=== PATIENT | male | born 1980 | race Two or more races ===

== ENCOUNTER 2021-01-11 07:44 | Emergency (ER) | payer OTHER ==
[~2021-01-11] VITALS: Ht 162.6 cm; Wt 90.7 kg
[2021-01-11] MEDS ORDERED: SODIUM CHLORIDE 0.9% 1,000 ML IV ONE ×2 (08:45)
[2021-01-11] MEDS ORDERED: THIAMINE 100mg/ml INJ (200mg/2ml VIAL) IV ONE (08:45)
[2021-01-11] MEDS ORDERED: chlordiazePOXIDE HCL 5 MG CAP PO ONE (08:45)
[2021-01-11 09:31] LABS: Basophils # (auto) 0 10 ^3/uL (0-0.2); Basophils % (auto) 0.3 % (0.0-2.0); Eosinophils # (auto) 0 10 ^3/uL (0-0.8); Eosinophils % (auto) 0.5 % (0.0-7.0); Hematocrit 44.2 % (41.0-53.0); Lymphocytes # (auto) 3.3 10 ^3/uL (0.4-5.4); Lymphocytes % (auto) 36.4 % (10.0-50.0); Mean Corpuscular Hemoglobin 33.7 pg (28.0-32.0); Mean Corpuscular Volume 93.2 fL (80.0-100.0); Monocytes # (auto) 0.6 10 ^3/uL (0-1.3); Monocytes % (auto) 7.1 % (0.0-12.0); Neutrophils % (auto) 55.7 % (37.0-80.0); Nucleated Red Blood Cells % 0.1 %; Platelet Count (auto) 129 10^3/uL (140-450); Red Blood Cells 4.74 10^6/uL (4.5-5.90); Red Cell Distribution Width 13.8 % (11.8-14.3); White Blood Cell 8.9 10^3/uL (4.4-10.8)
[2021-01-11 09:35] LABS: Urine Bacteria NONE SEEN /hpf (None Seen); Urine Blood Negative /uL (Negative); Urine Specific Gravity 1.012 (1.001-1.035); Urine WBC <1 /hpf (0 - 3)
[2021-01-11 09:48] LABS: Albumin 3.8 g/dL (3.4-5.0); Calcium 7.9 mg/dL (8.5-10.1); Potassium 3.7 mmol/L (3.5-5.1)
[2021-01-11 09:51] LABS: BUN/Creatinine Ratio 9.3; Bilirubin, Total 0.6 mg/dL (0.2-1.0); Total Protein 8.7 g/dL (6.4-8.2)
[2021-01-11] MEDS ORDERED: ONDANSETRON HCL 4 MG/2 ML VIAL IV ONE (12:45)
[2021-01-11 14:00] VITALS: BP 158/99
== END 2021-01-11 15:09 | disposition home or self-care (01) ==
LOC: ER 07:44
DX: F10.239 Alcohol dependence with withdrawal, unspecified (principal); F41.9 Anxiety disorder, unspecified; Z20.822 Contact with and (suspected) exposure to COVID-19; Y90.9 Presence of alcohol in blood, level not specified
CPT/HCPCS: 36415; 80053; 81001; 85025; 85049; 87426; 96361; 96374; 96375; 99285; J2405; J3411; J7030

== ENCOUNTER 2021-02-13 07:52 | Emergency (ER) | payer OTHER ==
[~2021-02-13] VITALS: Ht 162.6 cm; Wt 90.7 kg
[2021-02-13] MEDS ORDERED: SODIUM CHLORIDE 0.9% 1,000 ML IV ONE ×2 (08:30)
[2021-02-13] MEDS ORDERED: THIAMINE 100mg/ml INJ (200mg/2ml VIAL) IV ONE (08:30)
[2021-02-13] MEDS ORDERED: LABETALOL HCL 5 MG/ML 4ML SYRINGE IV ONE (08:30)
[2021-02-13 08:50] LABS: Albumin 4.2 g/dL (3.4-5.0); BUN/Creatinine Ratio 8.4; Calcium 8.5 mg/dL (8.5-10.1); Magnesium 1.2 mg/dL (1.6-2.6)
[2021-02-13 08:53] LABS: Bilirubin, Total 0.7 mg/dL (0.2-1.0); Total Protein 8.9 g/dL (6.4-8.2)
[2021-02-13 08:57] LABS: Basophils # (auto) 0.1 10 ^3/uL (0-0.2); Basophils % (auto) 0.8 % (0.0-2.0); Eosinophils # (auto) 0 10 ^3/uL (0-0.8); Eosinophils % (auto) 0.1 % (0.0-7.0); Hematocrit 45.4 % (41.0-53.0); Lymphocytes % (auto) 28.1 % (10.0-50.0); Mean Corpuscular Hemoglobin 32.2 pg (28.0-32.0); Mean Corpuscular Hgb Conc. 35.3 g/dL (32.0-36.0); Mean Corpuscular Volume 91.3 fL (80.0-100.0); Monocytes # (auto) 0.4 10 ^3/uL (0-1.3); Neutrophils # (auto) 4.6 10 ^3/uL (1.6-8.6); Nucleated Red Blood Cells % 0.1 %; Red Blood Cells 4.97 10^6/uL (4.5-5.90); Red Cell Distribution Width 13.4 % (11.8-14.3); White Blood Cell 7.1 10^3/uL (4.4-10.8)
[2021-02-13 09:04] LABS: Potassium 2.9 mmol/L (3.5-5.1)
[2021-02-13] MEDS ORDERED: POTASSIUM EFFERVESENT TAB 25 MEQ PO ONE (09:15)
[2021-02-13] MEDS ORDERED: chlordiazePOXIDE HCL 25 MG CAP PO ONE (09:45)
[2021-02-13] MEDS ORDERED: ONDANSETRON HCL 4 MG/2 ML VIAL IV ONE (10:00)
[2021-02-13 12:14] VITALS: BP 157/95
== END 2021-02-13 12:33 | disposition home or self-care (01) ==
LOC: ER 07:52
DX: F10.129 Alcohol abuse with intoxication, unspecified (principal); R00.2 Palpitations; R00.0 Tachycardia, unspecified; Y90.0 Blood alcohol level of less than 20 mg/100 ml
CPT/HCPCS: 36415; 71045; 80053; 80320; 83735; 84484; 85025; 93005; 96361; 96374; 96375; 99285; J2405; J3411; J3490; J7030

== ENCOUNTER 2021-03-29 06:58 | Inpatient (IN) | payer OTHER ==
[~2021-03-29] VITALS: Ht 162.6 cm; Wt 90.7 kg
[2021-03-29 07:34] LABS: Basophils # (auto) 0 10 ^3/uL (0-0.2); Basophils % (auto) 0.5 % (0.0-2.0); Eosinophils # (auto) 0 10 ^3/uL (0-0.8); Eosinophils % (auto) 0.7 % (0.0-7.0); Hematocrit 45.8 % (41.0-53.0); Hemoglobin 15.9 g/dL (13.5-17.5); Lymphocytes # (auto) 2.7 10 ^3/uL (0.4-5.4); Lymphocytes % (auto) 46.3 % (10.0-50.0); Mean Corpuscular Hemoglobin 32.7 pg (28.0-32.0); Mean Corpuscular Hgb Conc. 34.8 g/dL (32.0-36.0); Monocytes # (auto) 0.5 10 ^3/uL (0-1.3); Monocytes % (auto) 8.4 % (0.0-12.0); Neutrophils # (auto) 2.5 10 ^3/uL (1.6-8.6); Neutrophils % (auto) 44.1 % (37.0-80.0); Nucleated Red Blood Cells % 0.3 %; Red Blood Cells 4.88 10^6/uL (4.5-5.90); White Blood Cell 5.7 10^3/uL (4.4-10.8)
[2021-03-29 07:55] LABS: Albumin 3.9 g/dL (3.4-5.0); Anion Gap 13 (5-15); Blood Urea Nitrogen 4 mg/dL (7-18); Calcium 9.3 mg/dL (8.5-10.1); Carbon Dioxide 22 mmol/L (21-32); Chloride 100 mmol/L (98-107); Glucose 102 mg/dL (74-106); Sodium 135 mmol/L (136-145)
[2021-03-29 08:02] LABS: Alanine Aminotransferase 55 U/L (16-61); Alkaline Phosphatase 70 U/L (45-117); Aspartate Aminotransferase 53 U/L (15-37); BUN/Creatinine Ratio 5.4; Bilirubin, Total 0.8 mg/dL (0.2-1.0); GFR African American 151 mL/min; GFR Non-African American 125 mL/min; Total Protein 8.7 g/dL (6.4-8.2)
[2021-03-29 08:07] LABS: Potassium 2.9 mmol/L (3.5-5.1)
[2021-03-29] MEDS ORDERED: POTASSIUM CHL 20MEQ/100ML 100 ML IV ONE (08:15)
[2021-03-29] MEDS ORDERED: ENOXAPARIN SOD 60 MG/0.6 ML SYRINGE SC ONE (08:15)
[2021-03-29 08:34] LABS: Urine Bacteria NONE SEEN /hpf (None Seen); Urine Blood Negative /uL (Negative); Urine Mucus FEW (None Seen); Urine Specific Gravity 1.019 (1.001-1.035); Urine WBC 1 /hpf (0 - 3)
[2021-03-29 08:45] LABS: Amphetamine Screen, Urine NEGATIVE (NEGATIVE); Barbiturate Scree,Urine NEGATIVE (NEGATIVE); Benzodiazephine Screen, Urine NEGATIVE (NEGATIVE); Cannabinoid Screen, Urine NEGATIVE (NEGATIVE); Cocaine Screen, Urine NEGATIVE (NEGATIVE); Opiate Scree,Urine NEGATIVE (NEGATIVE); Phencyclidine Screen, Urine NEGATIVE (NEGATIVE)
[2021-03-29] MEDS ORDERED: POTASSIUM EFFERVESENT TAB 25 MEQ PO ONE (09:45)
[2021-03-29] MEDS ORDERED: LORazepam 2MG/ML-1ML VIAL IV ONE (10:00)
[2021-03-29] MEDS ORDERED: chlordiazePOXIDE HCL 25 MG CAP PO ONE (10:00)
[2021-03-29] MEDS ORDERED: FOLIC ACID 1 MG, MULTIPLE VITAMIN 10 ML, MAGNESIUM SULF SDV 50% 8 MEQ, THIAMINE INJ 100... INJ SCH ×5 (10:00)
[2021-03-29] MEDS ORDERED: ONDANSETRON HCL 4 MG/2 ML VIAL IV ONE (10:45)
[2021-03-29] MEDS ORDERED: SODIUM CHLORIDE 0.9% 1,000 ML IV ONE (10:45)
[2021-03-29] MEDS ORDERED: NITROGLYCERIN 0.4 MG SL TAB SL PRN (15:15)
[2021-03-29] MEDS ORDERED: SOD CHL 0.9%/ KCL 20MEQ 1,000 ML IV SCH (15:15)
[2021-03-29] MEDS ORDERED: POTASSIUM CHLORIDE 40 MEQ, LIDOCAINE 1% (LOCAL ANESTH.) 4 ML in SODIUM CHL 0.9% 250 ML IV ONE (15:15)
[2021-03-29] MEDS ORDERED: LORazepam 2MG/ML-1ML VIAL IV PRN (15:15)
[2021-03-29] MEDS ORDERED: chlordiazePOXIDE HCL 25 MG CAP PO PRN (15:15)
[2021-03-29] MEDS ORDERED: PANTOPRAZOLE 40 MG/10 ML VIAL INJ IV ONE (15:15)
[2021-03-29] MEDS ORDERED: MORPHINE SULFATE INJECTION 2 MG/ML SYRG IV PRN (15:15)
[2021-03-29] MEDS ORDERED: POTASSIUM CHL 20 Meq TABLET PO ONE (15:15)
[2021-03-29] MEDS ORDERED: ATORVASTATIN 20 MG TAB PO SCH (22:00)
[2021-03-30] VITALS: BP 137/46
[2021-03-30 00:20] VITALS: BP 137/96
[2021-03-30] MEDS ORDERED: ALBUAER3 IN (02:51)
[2021-03-30] MEDS ORDERED: PNEUMOCOCCAL VACC POLYS 25 MCG/0.5 ML VIAL IM ONE (03:00)
[2021-03-30 05:00] VITALS: BP 145/92
[2021-03-30 06:30] LABS: Potassium 4.1 mmol/L (3.5-5.1)
[2021-03-30 06:56] LABS: Albumin 3.3 g/dL (3.4-5.0); Bilirubin, Total 1.3 mg/dL (0.2-1.0); Calcium 8.6 mg/dL (8.5-10.1); Magnesium 1.9 mg/dL (1.6-2.6); Total Protein 7.3 g/dL (6.4-8.2)
[2021-03-30 10:00] VITALS: BP 137/91
[2021-03-30] MEDS ORDERED: PANTOPRAZOLE 40 MG/10 ML VIAL INJ IV SCH (10:00)
[2021-03-30] MEDS ORDERED: ASPirin 81 mg TAB PO SCH (10:00)
[2021-03-30] MEDS ORDERED: LISINOPRIL 10 MG TAB PO SCH (10:00)
[2021-03-30] MEDS ORDERED: FOLIC ACID 1 MG, MULTIPLE VITAMIN 10 ML, MAGNESIUM SULF SDV 50% 8 MEQ, THIAMINE INJ 100... INJ SCH ×5 (12:00)
[2021-03-30 13:00] VITALS: BP 144/95
[2021-03-30 14:09] VITALS: BP 137/91
== END 2021-03-30 16:30 | disposition home or self-care (01) | DRG 392 ==
LOC: ER 06:58 → TELE 15:15 → TELE-CENTR 23:33
PROVIDERS: ADMIT Internal Medicine; ATTEND Internal Medicine
DX: K21.9 Gastro-esophageal reflux disease without esophagitis (principal); F10.230 Alcohol dependence with withdrawal, uncomplicated; K29.20 Alcoholic gastritis without bleeding; E87.6 Hypokalemia; F41.9 Anxiety disorder, unspecified; Y90.2 Blood alcohol level of 40-59 mg/100 ml; F10.229 Alcohol dependence with intoxication, unspecified; I10 Essential (primary) hypertension; E66.9 Obesity, unspecified; E78.5 Hyperlipidemia, unspecified; Z20.822 Contact with and (suspected) exposure to COVID-19; Z68.34 Body mass index [BMI] 34.0-34.9, adult; Z79.899 Other long term (current) drug therapy; Z91.19 Patient's noncompliance with other medical treatment and regimen
CPT/HCPCS: 36415; 71045; 80053; 80061; 80307; 80320; 81001; 83735; 84443; 84484; 85025; 87426; 93005; 93306; 96365; 96366; 96372; 96375; 99291; C9113; G0378; J2001; J2405

== ENCOUNTER 2021-05-25 19:48 | Emergency (ER) | payer OTHER ==
[~2021-05-25] VITALS: Ht 160 cm; Wt 90.7 kg
[~2021-05-25 19:48] MED LIST: ALBUAER3 IN
[2021-05-25 21:18] LABS: Urine Bacteria NONE SEEN /hpf (None Seen); Urine Blood 1+ /uL (Negative); Urine Hyaline Cast MOD /lpf (0 - 2); Urine Mucus FEW (None Seen); Urine Specific Gravity 1.028 (1.001-1.035); Urine WBC 2 /hpf (0 - 3)
[2021-05-25 21:26] LABS: Basophils # (auto) 0.1 10 ^3/uL (0-0.2); Basophils % (auto) 0.5 % (0.0-2.0); Eosinophils # (auto) 0 10 ^3/uL (0-0.8); Hematocrit 48.1 % (41.0-53.0); Hemoglobin 16.3 g/dL (13.5-17.5); Lymphocytes # (auto) 3.2 10 ^3/uL (0.4-5.4); Lymphocytes % (auto) 26.6 % (10.0-50.0); Mean Corpuscular Hemoglobin 32.2 pg (28.0-32.0); Mean Corpuscular Hgb Conc. 33.9 g/dL (32.0-36.0); Mean Corpuscular Volume 94.8 fL (80.0-100.0); Monocytes # (auto) 0.4 10 ^3/uL (0-1.3); Monocytes % (auto) 3.4 % (0.0-12.0); Neutrophils # (auto) 8.5 10 ^3/uL (1.6-8.6); Neutrophils % (auto) 69.5 % (37.0-80.0); Nucleated Red Blood Cells % 0.2 %; Red Blood Cells 5.08 10^6/uL (4.5-5.90); Red Cell Distribution Width 14.2 % (11.8-14.3); White Blood Cell 12.2 10^3/uL (4.4-10.8)
[2021-05-25 21:30] LABS: Amphetamine Screen, Urine NEGATIVE (NEGATIVE); Barbiturate Scree,Urine NEGATIVE (NEGATIVE); Benzodiazephine Screen, Urine NEGATIVE (NEGATIVE); Cannabinoid Screen, Urine NEGATIVE (NEGATIVE); Cocaine Screen, Urine NEGATIVE (NEGATIVE); Phencyclidine Screen, Urine NEGATIVE (NEGATIVE)
[2021-05-25 21:38] LABS: Opiate Scree,Urine NEGATIVE (NEGATIVE)
[2021-05-25 21:40] LABS: CRP High Sensitivity 0.02 mg/dL (< 0.3)
[2021-05-25 21:43] LABS: Salicylate < 1.7 mg/dL (2.8-20.0)
[2021-05-25 21:44] LABS: Acetaminophen < 2.0 ug/mL (10-30)
[2021-05-25] MEDS ORDERED: LORazepam 0.5 MG TAB PO ONE (21:45)
[2021-05-25 22:16] LABS: Albumin 4.4 g/dL (3.4-5.0); Calcium 8.8 mg/dL (8.5-10.1); Potassium 3.7 mmol/L (3.5-5.1)
[2021-05-25 22:22] LABS: BUN/Creatinine Ratio 8.1; Bilirubin, Total 0.6 mg/dL (0.2-1.0)
[2021-05-26] MEDS: LORazepam 0.5 MG TAB PO PRN ×2 (11:00→23:51)
[2021-05-26] MEDS ORDERED: IBUPROFEN 800 MG TAB PO ONE (23:45)
[2021-05-27 07:37] VITALS: BP 138/90
[2021-05-27] MEDS ORDERED: CHL25C PO (15:21)
== END 2021-05-27 15:19 | disposition still patient (30) ==
LOC: ER 19:49
DX: R45.851 Suicidal ideations (principal); F10.10 Alcohol abuse, uncomplicated; I10 Essential (primary) hypertension; J45.909 Unspecified asthma, uncomplicated; Y90.8 Blood alcohol level of 240 mg/100 ml or more
CPT/HCPCS: 36415; 71045; 80053; 80307; 80320; 80329; 81001; 83735; 83880; 84484; 85025; 86141; 93005